=== PATIENT | female | born 1955 | race Caucasian/White ===

== ENCOUNTER 2023-03-17 14:59 | Outpatient (CLI) | payer MEDICARE | END 2023-03-17 15:00 | disposition home or self-care (01) | LOC: CSHRAD 14:59 | PROVIDERS: ATTEND Family Medicine | DX: R05.9 Cough, unspecified (principal) | CPT/HCPCS: 71046 ==

== ENCOUNTER 2023-08-19 08:31 | Outpatient (CLI) | payer MEDICARE | END 2023-08-19 08:32 | disposition home or self-care (01) | LOC: CSHRAD 08:31 | PROVIDERS: ATTEND Family Medicine | DX: R05.9 Cough, unspecified (principal) | CPT/HCPCS: 71046 ==